=== PATIENT | male | born 1995 | race Caucasian/White ===

== ENCOUNTER → 2018-01-14 | Outpatient (CLI) | payer BC ==
[~2018-01-14] MED LIST: BACTRIM DS 8001 TA1 PO; FLONASE ALLERG9.9 ML NAS; KEFLEX500 MG PO; LOMOTIL 0.025 M1 TA1 PO; Motrin,Rufen800 MG PO; NKHM; PREDNISONE10 MG PO; PRILOSEC20 MG PO; ROBITUSSIN DM 105 ML PO; TAMIFLU 75MG CA75 MG PO; ZOFRAN ODT4 MG SL; Zofran4 MG PO
== END | disposition home or self-care (01) ==
LOC: RESCLI 03:40
DX: K21.9 Gastro-esophageal reflux disease without esophagitis (principal); K92.1 Melena; E66.3 Overweight

== ENCOUNTER → 2018-04-10 | Outpatient (CLI) | payer BC ==
[2018-04-10 11:54] LABS: BASO % 0.3 % (0.0-1.0); EOS # 0.1 10*3/uL (0.0-0.4); EOS % 1.3 % (1.0-4.0); HEMATOCRIT 43.9 % (42.0-52.0); HEMOGLOBIN 15.4 g/dl (14.0-18.0); LYMPH # 1.7 10*3/uL (1.3-4.4); LYMPH % 28.1 % (27.0-41.0); MEAN CELL VOLUME 86.2 fl (80.0-94.0); MEAN CORPUSCULAR HGB 30.3 pg (27.0-31.0); MEAN CORPUSCULAR HGB CONC 35.1 g/dl (33.0-37.0); MEAN PLATELET VOLUME 11.4 fl (9.6-12.3); MONO # 0.5 10*3/uL (0.1-1.0); MONO % 7.4 % (3.0-9.0); NEUT # 3.8 10*3/uL (2.3-7.9); NEUT % 62.6 % (47.0-73.0); PLATELET COUNT AUTOMATED 195 10*3/uL (130-400); RED BLOOD COUNT 5.09 10*6/uL (4.50-5.90); RED CELL DISTRI WIDTH 12.3 % (0-14.5); WHITE BLOOD COUNT 6.1 10*3/uL (4.8-10.8)
[2018-04-10 12:21] LABS: BUN 10 mg/dl (7-24); CHLORIDE 106 mmol/L (98-107); CREATININE 0.94 mg/dL (0.70-1.30); POTASSIUM 3.6 mmol/L (3.5-5.1); SODIUM 142 mmol/L (136-145)
== END | disposition home or self-care (01) ==
LOC: RESCLI 02:29
PROVIDERS: Internal Medicine
DX: K21.9 Gastro-esophageal reflux disease without esophagitis (principal); K92.1 Melena; R10.13 Epigastric pain; E66.3 Overweight; Z79.899 Other long term (current) drug therapy; Z88.8 Allergy status to other drugs, medicaments and biological substances

== ENCOUNTER 2019-01-10 21:15 | Emergency (ER) | payer BC ==
[~2019-01-10] VITALS: Ht 177.8 cm; Wt 99.8 kg
[2019-01-10] MEDS ORDERED: CLINDAMYCIN150 MG PO (21:43)
[2019-01-10] MEDS ORDERED: Motrin,Rufen800 MG PO (21:43)
== END 2019-01-10 22:10 | disposition home or self-care (01) ==
LOC: ED 21:15
DX: K08.89 Other specified disorders of teeth and supporting structures (principal)

== ENCOUNTER → 2020-11-01 | Outpatient (CLI) | payer BC ==
[~2020-11-01] MED LIST changes: +CLINDAMYCIN150 MG PO
== END | disposition home or self-care (01) ==
LOC: COVID19 11:59
PROVIDERS: ATTEND Internal Medicine
DX: Z20.822 Contact with and (suspected) exposure to COVID-19 (principal)

== ENCOUNTER 2022-09-06 04:40 | Emergency (ER) | payer BC ==
[~2022-09-06] VITALS: Ht 172.7 cm; Wt 99.8 kg
[~2022-09-06 04:40] MED LIST changes: +OMEPRAZOLE MAGN20 MG PO
[2022-09-06 05:58] LABS: ALKALINE PHOSPHATASE 85 U/L (46-116); BUN 13 mg/dl (9-23); CHLORIDE 104 mmol/L (98-107); LIPASE 26 U/L (12-53); POTASSIUM 3.6 mmol/L (3.4-5.1); SGPT/ALT 52 U/L (10-49); TOTAL PROTEIN 7.3 gm/dL (6.0-8.0)
[2022-09-06 06:13] LABS: HEMATOCRIT 44.4 % (42.0-52.0); MEAN CELL VOLUME 84.7 fl (80.0-94.0); MEAN CORPUSCULAR HGB 30.3 pg (27.0-31.0); MEAN CORPUSCULAR HGB CONC 35.8 g/dl (33.0-37.0); MEAN PLATELET VOLUME 11.7 fl (9.6-12.3); PLATELET COUNT AUTOMATED 177 10*3/uL (130-400); RED BLOOD COUNT 5.24 10*6/uL (4.50-5.90); RED CELL DISTRI WIDTH 12.2 % (0-14.5); WHITE BLOOD COUNT 9.4 10*3/uL (4.8-10.8)
[2022-09-06 06:19] LABS: MANUAL DIFF REFLEX YES
[2022-09-06] MEDS ORDERED: ONDANSETRON4 MG SL (06:56)
[2022-09-06 07:10] LABS: PLATELET SUFFICIENCY NORMAL (NORMAL); POLYCHROMASIA SLIGHT; TOTAL CELLS COUNTED 100 #CELLS
== END 2022-09-06 07:04 | disposition home or self-care (01) ==
LOC: ED 04:40
PROVIDERS: Internal Medicine
DX: K52.9 Noninfective gastroenteritis and colitis, unspecified (principal); E83.42 Hypomagnesemia; Z79.899 Other long term (current) drug therapy

== ENCOUNTER → 2022-10-07 | Day surgery (SDC) | payer BC ==
[~2022-10-07] VITALS: Ht 177.8 cm; Wt 108.9 kg
[~2022-10-07] MED LIST changes: +CARAFATE1 G1 PO; +ONDANSETRON4 MG SL; +PROTONIX40 MG PO
[2022-10-07 08:50] VITALS: BP 110/72
[2022-10-07 09:20] VITALS: BP 108/61
[2022-10-07 09:35] VITALS: BP 133/93
[2022-10-07 09:50] VITALS: BP 126/94
== END | disposition home or self-care (01) ==
LOC: SDC 10-03 12:30
PROVIDERS: ATTEND Surgery
DX: K92.1 Melena (principal); K21.9 Gastro-esophageal reflux disease without esophagitis; K29.50 Unspecified chronic gastritis without bleeding